=== PATIENT | male | born 1960 | race African-American/Black ===

== ENCOUNTER 2024-05-06 02:10 | Emergency (ER) | payer MEDICAID, MEDICARE ==
[~2024-05-06] VITALS: Ht 177.8 cm; Wt 102.1 kg
[2024-05-06 02:58] LABS: BASOPHILS % (AUTO) 0.4 % (0.0-2.0); EOSINOPHILS # (AUTO) 0.1 K/uL (0.0-0.7); EOSINOPHILS % (AUTO) 2.6 % (0.0-7.0); HEMATOCRIT 40.9 % (36.7-47.1); LYMPHOCYTES # (AUTO) 1.4 K/uL (0.8-4.8); LYMPHOCYTES % (AUTO) 24.5 % (20.5-51.5); MEAN CORPUSCULAR HEMOGLOBIN 29.1 uug (23.8-33.4); MEAN CORPUSCULAR HGB CONC 34 g/dL (32.5-36.3); MONOCYTES # (AUTO) 0.7 K/uL (0.1-1.30); NEUTROPHILS # (AUTO) 3.4 K/uL (1.8-8.9); NEUTROPHILS % (AUTO) 60.5 % (38.5-71.5); PLATELET COUNT (AUTO) 331 K/uL (152-348); RED BLOOD CELL COUNT(AUTO) 4.81 MIL/uL (4.06-5.63); RED CELL DISTRIBUTION WIDTH 13.4 % (12.1-16.2); WHITE BLOOD COUNT (AUTO) 5.5 K/uL (3.6-10.2)
[2024-05-06 03:07] LABS: CALCIUM 8.6 mg/dL (8.5-10.1); CARBON DIOXIDE 26 mmol/L (21-32); CHLORIDE 103 mmol/L (98-107); CREATININE 1.1 mg/dL (0.6-1.3); GLUCOSE 115 mg/dL (74-106); POTASSIUM 3.4 mmol/L (3.5-5.1); SODIUM SERUM 140 mmol/L (136-145); UREA NITROGEN, BLOOD 14 mg/dL (7-18)
[2024-05-06] MEDS ORDERED: POTASSIUM CHLORIDE 20 MEQ TAB.PRT.SR ONE (04:03)
[2024-05-06] MEDS ORDERED: hydrALAZINE HCL 20 MG/1 ML VIAL ONE ×2 (04:03→05:06)
[2024-05-06] MEDS ORDERED: ASPIRIN 325 MG TABLET ONE (04:03)
[2024-05-06] MEDS: POTASSIUM CHLORIDE 20 MEQ TAB.PRT.SR PO ONE (04:10)
[2024-05-06] MEDS: hydrALAZINE HCL 20 MG/1 ML VIAL IV ONE ×2 (04:10→05:05)
[2024-05-06] MEDS: ASPIRIN 325 MG TABLET PO ONE (04:10)
[2024-05-06] MEDS ORDERED: HEPARIN SODIUM,PORCINE 5,000 UNITS/ML VIAL ONE (05:44)
[2024-05-06 05:45] VITALS: BP 156/103
[2024-05-06] MEDS ORDERED: NITROGLYCERIN OINT 1 GM PACKET TP ONE (05:45)
[2024-05-06] MEDS: NITROGLYCERIN OINT 1 GM PACKET TP ONE (05:45)
[2024-05-06] MEDS: HEPARIN SODIUM,PORCINE/PF 500 UNIT/5 ML SYR XX ONE (05:45)
[2024-05-06] MEDS ORDERED: MORPHINE SULFATE 4 MG/1 ML DISP.SYRIN ONE (05:56)
[2024-05-06] MEDS ORDERED: ONDANSETRON 4 MG/2 ML VIAL ONE (05:56)
[2024-05-06 06:00] VITALS: O2SAT 99
[2024-05-06] MEDS: MORPHINE SULFATE 4 MG/1 ML DISP.SYRIN IV ONE (06:00)
[2024-05-06] MEDS: ONDANSETRON 4 MG/2 ML VIAL IV ONE (06:00)
== END 2024-05-06 06:05 | disposition short-term general hospital (02) ==
LOC: ER 02:15
DX: I21.3 ST elevation (STEMI) myocardial infarction of unspecified site (principal); Z60.2 Problems related to living alone
CPT/HCPCS: 99291; 96374; 96375; 80048; 83880; 85025; 84484 ×2; 36415; 93005; 71045; 96376; J1644; J0360 ×2; J2405; J2270; A4606; A4663